=== PATIENT | female | born 1985 | race Caucasian/White ===

== ENCOUNTER 2021-07-05 10:45 | Emergency (ER) | payer OTHER ==
[~2021-07-05 10:45] MED LIST: BENTYL 20MG TAB20 MG PO; COMBIVENT0.074 GM/I INH; FEOSOL325 MG PO; FLEXERIL 10 MG10 MG PO; IBUPROFEN600 MG PO; LOPRESSOR 25 MG25 MG PO; LORTAB 5-325 M1 EACH PO; NEXIUM20 MG PO; OXYGEN; PRENATAL TABLE1 EAC1 PO; PROTONIX40 MG PO; SINGULAIR10 MG PO; VENTOLIN HFA 66.7 GM INH; VITAMIN D35000 UNI1 PO; ZOFRAN ODT 4 MG4 MG SL
[2021-07-05 12:27] LABS: HEMOGLOBIN 14.4 gm/dl (12.3-15.3); RED BLOOD COUNT 4.67 M/UL (4.00-5.10); WHITE BLOOD COUNT 9.2 K/UL (4.5-11.0)
[2021-07-05 13:09] LABS: BUN/CREATININE RATIO 7 (0-10)
== END 2021-07-05 14:25 | disposition left against medical advice (07) ==
LOC: ER1 10:45
PROVIDERS: Physician Assistant Medical
DX: R10.84 Generalized abdominal pain (principal); I10 Essential (primary) hypertension; F17.210 Nicotine dependence, cigarettes, uncomplicated; Z88.8 Allergy status to other drugs, medicaments and biological substances
CPT/HCPCS: 71045; 74018; 80053; 81001; 83605; 84703; 85025; 99284

== ENCOUNTER 2022-04-29 17:05 | Inpatient (IN) | payer OTHER ==
[~2022-04-29] VITALS: Ht 157.5 cm; Wt 65.8 kg
[2022-04-29 17:49] LABS: HEMOGLOBIN 8.8 gm/dl (12.3-15.3); RED BLOOD COUNT 3.81 M/UL (4.00-5.10); WHITE BLOOD COUNT 9.1 K/UL (4.5-11.0)
[2022-04-29] MEDS ORDERED: DOCUSATE SODIU250 MG PO (18:10)
[2022-04-29] MEDS ORDERED: IBUPROFEN600 MG PO (18:10)
[2022-04-29] MEDS ORDERED: BUPRENORPHIN-N1 EACH SL (19:31)
[2022-04-29] MEDS ORDERED: LABETALOL HCL100 MG PO (19:31)
[2022-04-30] MEDS ORDERED: IBUPROFEN800 MG PO (14:50)
[2022-04-30] MEDS ORDERED: COLACE 100MG C100 MG PO (14:50)
== END 2022-04-30 20:32 | disposition home or self-care (01) | DRG 806 ==
LOC: OB 17:05
PROVIDERS: ADMIT Obstetrics & Gynecology
PROC: 10E0XZZ Delivery of Products of Conception, External Approach (ICD-10-PCS; principal; 2022-04-30)
PROC: 0KQM0ZZ Repair Perineum Muscle, Open Approach (ICD-10-PCS; 2022-04-30)
PROC: 10H07YZ Insertion of Other Device into Products of Conception, Via Natural or Artificial Opening (ICD-10-PCS; 2022-04-30)
PROC: 3E033VJ Introduction of Other Hormone into Peripheral Vein, Percutaneous Approach (ICD-10-PCS; 2022-04-30)
PROC: 10907ZC Drainage of Amniotic Fluid, Therapeutic from Products of Conception, Via Natural or Artificial Opening (ICD-10-PCS; 2022-04-30)
PROC: 3E0234Z Introduction of Serum, Toxoid and Vaccine into Muscle, Percutaneous Approach (ICD-10-PCS; 2022-04-30)
PROC: 4A1HXCZ Monitoring of Products of Conception, Cardiac Rate, External Approach (ICD-10-PCS; 2022-04-30)
DX: O10.92 Unspecified pre-existing hypertension complicating childbirth (principal); O98.42 Viral hepatitis complicating childbirth; Z37.0 Single live birth; O99.324 Drug use complicating childbirth; Z3A.37 37 weeks gestation of pregnancy; Z28.310 Unvaccinated for COVID-19; O99.334 Smoking (tobacco) complicating childbirth; Z88.8 Allergy status to other drugs, medicaments and biological substances; B18.2 Chronic viral hepatitis C; F17.210 Nicotine dependence, cigarettes, uncomplicated; F11.10 Opioid abuse, uncomplicated; Z86.73 Personal history of transient ischemic attack (TIA), and cerebral infarction without residual deficits; B19.20 Unspecified viral hepatitis C without hepatic coma; Z83.49 Family history of other endocrine, nutritional and metabolic diseases; Z83.3 Family history of diabetes mellitus; Z82.49 Family history of ischemic heart disease and other diseases of the circulatory system; Z83.2 Family history of diseases of the blood and blood-forming organs and certain disorders involving the immune mechanism; Z80.9 Family history of malignant neoplasm, unspecified; O70.1 Second degree perineal laceration during delivery; Z23 Encounter for immunization
CPT/HCPCS: 36415; 80307; 81001; 82800; 85025; 90471; 90715; J2590